=== PATIENT | male | born 1985 | race Caucasian/White ===

== ENCOUNTER 2020-10-20 10:49 | Emergency (ER) | payer MEDICAID, OTHER ==
[~2020-10-20] VITALS: Ht 177.8 cm; Wt 214.2 kg
[2020-10-20] MEDS ORDERED: HYDR50TAB PO (11:01)
[2020-10-20] MEDS ORDERED: LISI20TA33 PO (11:01)
[2020-10-20] MEDS ORDERED: CEPH500C PO (11:01)
[2020-10-20] MEDS ORDERED: LISI40TA4 PO (11:01)
[2020-10-20] MEDS ORDERED: LASI20TA3 PO (11:01)
[2020-10-20] MEDS ORDERED: METF500T13 PO (11:01)
[2020-10-20 13:43] LABS: BASO # 0.1 10^3/uL (0.0-0.2); BASO % 0.5 % (0.0-1.0); EOS # 0.1 10^3/uL (0.0-0.5); EOS % 1.2 % (0.0-3.0); HEMATOCRIT 56.6 % (42.0-52.0); HEMOGLOBIN 17.5 g/dl (13.5-17.5); LYMPH # 1.5 10^3/uL (1.5-5.0); LYMPH % 15.8 % (24.0-44.0); MEAN CORPUSCULAR HEMOGLOBIN 26.1 pg (27.0-33.0); MEAN CORPUSCULAR HGB CONC 30.9 g/dl (32.0-36.5); MEAN CORPUSCULAR VOLUME 84.5 fl (80.0-96.0); MONO # 0.7 10^3/uL (0.0-0.8); MONO % 7.6 % (2.0-8.0); NEUTROPHILS # 7.3 10^3/uL (1.5-8.5); NEUTROPHILS % 74.4 % (36.0-66.0); PLATELET COUNT, AUTOMATED 259 10^3/uL (150-450); WHITE BLOOD COUNT 9.8 10^3/uL (4.0-10.0)
[2020-10-20 14:39] VITALS: BP 142/94
== END 2020-10-20 14:40 | disposition home or self-care (01) ==
LOC: M ED 10:49
DX: I87.2 Venous insufficiency (chronic) (peripheral) (principal); L03.119 Cellulitis of unspecified part of limb; I10 Essential (primary) hypertension; E11.9 Type 2 diabetes mellitus without complications; F17.200 Nicotine dependence, unspecified, uncomplicated

== ENCOUNTER → 2021-12-30 | Outpatient (CLI) | payer OTHER ==
[~2021-12-30] MED LIST: AMLO1TAB24 PO; CEPH500C PO; ECOT81TA5 PO; HYDR50TAB PO; LASI20TA3 PO; LISI20TA33 PO; LISI40TA4 PO; METF-838 PO; METF500T13 PO; MUCI600T31 PO; PANT40TA29 PO; PRED10TA2 PO; PROAAER10 INH
== END ==
LOC: M SLEEP 20:00
PROVIDERS: ATTEND Internal Medicine Pulmonary Disease
DX: G47.33 Obstructive sleep apnea (adult) (pediatric) (principal)